=== PATIENT | male | born 1950 | race Caucasian/White ===

== ENCOUNTER 2019-10-20 11:01 | Emergency (ER) | payer MEDICARE ==
[2019-10-20 11:21] VITALS: O2SAT 98
--- NOTE | 2019-10-20 12:42 | RAD ---
EXAM DESCRIPTION: Ankle,Right 2 Views CLINICAL HISTORY: fall this am with lateral pain COMPARISON: None. IMPRESSION: 2 views of the right ankle show no acute fracture, focal bone destruction, or joint dislocation. Moderate soft tissue swelling over the lateral malleolus suggests soft tissue or ligamentous injury. Lateral view is mildly obliqued and no AP oblique view is obtained. Electronically signed by: Isaac Hart MD 10/20/2019 12:41 PM BATTERY TECHNICIAN
--- NOTE | 2019-10-20 12:44 | RAD ---
EXAM DESCRIPTION: Tibia/Fibula,Right CLINICAL HISTORY: fall this am with lateral pain COMPARISON: None. IMPRESSION: 2 views of the right tibia and fibula show nondisplaced mildly comminuted fracture at the metadiaphyseal region of the proximal fibula. No distal fibular fracture seen. Moderate soft tissue swelling of the distal lateral malleolus is identified. Electronically signed by: Isaac Hart MD 10/20/2019 12:42 PM SMALL STOCK FACER
--- NOTE | 2019-10-20 12:55 | ED.PDOC ---
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 The patient has had increasing pain to the right lateral lower extremity over the morning. He has tenderness to palpation over the proximal fibula and also swelling over the distal fibula and lateral ankle. No other obvious injury. No laceration. He otherwise appears to be neurovascularly at his baseline. Timing/Duration: 1-3 hours Severity: moderate Improving Factors: immobilization Worsening Factors: movement Associated Symptoms: denies symptoms Allergies/Adverse Reactions: Allergies NO KNOWN ALLERGY Allergy (Verified 10/20/19 11:22) Home Medications: Ambulatory Orders Aspirin [Baby Aspirin] 81 mg PO DAILY 02/19/15 Ranitidine HCl [Zantac 75] 150 mg PO BID 02/19/15 Tramadol HCl 50 mg PO Q8HR PRN #20 tab 10/20/19 Review of Systems - Review of Systems Constitutional: States: no symptoms reported EENTM: States: no symptoms reported Respiratory: States: no symptoms reported Cardiology: States: no symptoms reported Gastrointestinal/Abdominal: States: no symptoms reported Genitourinary: States: no symptoms reported Musculoskeletal: States: see HPI Skin: States: no symptoms reported Neurological: States: no symptoms reported Endocrine: States: no symptoms reported All other Systems: No Change from Baseline Past Medical History (General) - Patient Medical History Hx of COPD: No Hx Cardiac Disorders: No Hx Congestive Heart Failure: No Hx Hypertension: Yes Hx Diabetes: No Surgical History: no surgical history - Vaccination History Hx Tetanus, Diphtheria Vaccination: No Hx Influenza Vaccination: Yes Hx Pneumococcal Vaccination: No - Social History Hx Tobacco Use: Yes Hx Alcohol Use: Yes Hx Substance Use: No - Activities of Daily Living Hospice Agency (if applicable):: None - Female History Patient is a Female of Child Bearing Age (10 -59 yrs old): No - Triage Comment ED Triage Comment: pt voices falling and hurting right knee when ambulating up to hospital this morning for work. Family Medical History - Family History Mother Family History: Unknown Living Status: Physical Exam - Physical Exam General Appearance: Alert, No apparent distress Eye Exam: bilateral normal Neck: full range of motion, supple Respiratory: no respiratory distress, no accessory muscle use Cardiovascular/Chest: normal peripheral pulses, no edema Peripheral Pulses: dorsalis pedis,right: 2+, dorsalis pedis,left: 2+, posterior tibialis,right: 2+, posterior tibialis,left: 2+ Rectal Exam: deferred Extremity: normal range of motion, no pedal edema, no calf tenderness, normal capillary refill, other - See history of present illness 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 There is soft tissue swelling about the ankle. Progress - Progress Progress: 10/20/19 12:56 The patient is a 68-year-old male that fell while coming to work today, when he slipped on the ice. He appears to have sustained a nondisplaced proximal fibular fracture and a right lateral ankle sprain. Will be placed in a walking boot for the ankle sprain. If this is causing too much stress on the proximal fibular fracture site, then he will need to use crutches. He will be written for tramadol for pain control and can use Motrin or Aleve as needed as well. He should plan on using the boot or crutches for at least a few weeks. He should be reevaluated in a couple of weeks with his primary care doctor. ER warnings are given. emre whaley [id number] Departure - Departure Clinical Impression: Fracture of proximal end of fibula Qualifiers: Encounter type: initial encounter Fracture type: closed Fracture morphology: torus Laterality: right Qualified Code(s): S82.811A - Torus fracture of upper end of right fibula, initial encounter for closed fracture Right ankle sprain Qualifiers: Encounter type: initial encounter Involved ligament of ankle: unspecified ligament Qualified Code(s): S93.401A - Sprain of unspecified ligament of right ankle, initial encounter Disposition: Discharge to Home or Self Care Condition: Good Departure Forms: ED Discharge - Pt. Copy, Patient Portal Self Enrollment Instructions: DI for Leg Pain Diet: regular diet Activity: other Prescriptions: Tramadol HCl 50 mg PO Q8HR PRN #20 tab PRN Reason: Moderate Pain Home Medications: Ambulatory Orders Aspirin [Baby Aspirin] 81 mg PO DAILY 02/19/15 Ranitidine HCl [Zantac 75] 150 mg PO BID 02/19/15 Tramadol HCl 50 mg PO Q8HR PRN #20 tab 10/20/19 Additional Instructions: The patient is a 68-year-old male that fell while coming to work today, when he slipped on the ice. He appears to have sustained a nondisplaced proximal fibular fracture and a right lateral ankle sprain. Will be placed in a walking boot for the ankle sprain. If this is causing too much stress on the proximal fibular fracture site, then he will need to use crutches. He will be written for tramadol for pain control and can use Motrin or Aleve as needed as well. He should plan on using the boot or crutches for at least a few weeks. He should be reevaluated in a couple of weeks with his primary care doctor. ER warnings are given.
[2019-10-20 13:35] VITALS: BP 151/81; TEMP 97.8
== END 2019-10-20 13:33 | disposition home or self-care (01) ==
LOC: ER 11:01
DX: S82.811A Torus fracture of upper end of right fibula, initial encounter for closed fracture (principal); S93.401A Sprain of unspecified ligament of right ankle, initial encounter; I10 Essential (primary) hypertension; W00.0XXA Fall on same level due to ice and snow, initial encounter; Z87.891 Personal history of nicotine dependence; Y99.0 Civilian activity done for income or pay; Y92.69 Other specified industrial and construction area as the place of occurrence of the external cause

== ENCOUNTER → 2019-11-24 | Outpatient (CLI) | payer MEDICARE ==
--- NOTE | 2019-11-24 13:34 | RAD ---
3 radiographs right knee Indication: PAIN IN RIGHT KNEE Comparison: November 17, 2019 Impression: Obliquely oriented nondisplaced fibular metaphysis fracture proximally redemonstrated an remains united. Stable alignment. No new fracture. Mild tricompartmental joint space narrowing of the knee. Tiny effusion. Electronically signed by: Noe Mandujano MD 11/24/2019 1:32 PM CDT
--- NOTE | 2019-11-24 14:16 | RAD ---
EXAM DESCRIPTION: Foot,Right 3 Views CLINICAL HISTORY: FOOT PN COMPARISON: None. IMPRESSION: 3 views of the right foot show no acute fracture, focal bone destruction, or joint dislocation. 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 Electronically signed by: Isaac Hart MD 11/24/2019 2:15 PM CDT
--- NOTE | 2019-11-24 14:20 | RAD ---
EXAM DESCRIPTION: Ankle,Right 3 Views CLINICAL HISTORY: 68 years, Male, ANKLE PN COMPARISON: October 20, 2019 FINDINGS: X-ray three-view right ankle. No fracture. No bone lesion. Mortise joint intact. Soft tissue swelling has subsided over the lateral ankle. IMPRESSION: 1. Normal study Electronically signed by: Erik Faulkner MD 11/24/2019 2:18 PM CDT
== END ==
LOC: RAD 07:56
PROVIDERS: ATTEND Orthopaedic Surgery
DX: S82.402D Unspecified fracture of shaft of left fibula, subsequent encounter for closed fracture with routine healing (principal); M25.861 Other specified joint disorders, right knee; M19.071 Primary osteoarthritis, right ankle and foot